=== PATIENT | male | born 1970 | race Caucasian/White ===

== ENCOUNTER 2017-10-18 22:19 | Inpatient (IN) | payer SELFPAY ==
[~2017-10-18] VITALS: Ht 160 cm; Wt 66.6 kg
[2017-10-19 02:55] VITALS: BP 186/83; PULSE 74; RESP 18; TEMP 98.2; O2SAT 97
[2017-10-19] MEDS ORDERED: ALUMINUM/MAGNESIUM/SIMETH 30 ML CUP PO PRN (03:30)
[2017-10-19] MEDS ORDERED: hydrOXYzine HCL 50 MG TAB PO PRN (03:30)
[2017-10-19] MEDS ORDERED: diphenhydrAMINE HCL 50 MG/ML VIAL IM PRN (03:30)
[2017-10-19] MEDS ORDERED: ACETAMINOPHEN 325 MG TAB PO PRN (03:30)
[2017-10-19] MEDS ORDERED: MAGNESIUM HYDROXIDE SUSP 30 ML CUP PO PRN (03:30)
[2017-10-19] MEDS ORDERED: diphenhydrAMINE HCL 50 MG CAP - HS PRN PO (03:30)
[2017-10-19] MEDS ORDERED: diphenhydrAMINE HCL 50 MG CAP PO PRN (03:30)
[2017-10-19] MEDS ORDERED: diphenhydrAMINE HCL 50 MG/ML VIAL - HS PRN IM (03:30)
[2017-10-19] MEDS ORDERED: cloNIDine HCL 0.1 MG TAB PO PRN (07:30)
[2017-10-19] MEDS ORDERED: NICOTINE 21 MG/24 HR PATCH T-DERMAL PRN (09:00)
[2017-10-19] MEDS ORDERED: NICOTINE 21 MG/24 HR PATCH T-DERMAL SCH (09:00)
--- NOTE | 2017-10-19 09:43 | HHI.HP ---
Provisional Diagnosis Admission Date Oct 19, 2017 at 02:35 [place] [facility]. 1. Other psychotic disorder Rule-out schizophrenia Rule-out symptom exaggeration for penitentiary [place] II. Deferred Certification of Person's Competence To Provide Express and Informed Consent I have personally examined Jamie Washington , a person being served at [facility] on, Oct 19, 2017 09:43. Express and informed consent means consent voluntarily given in writing, by a competent person, after sufficient explanation and disclosure of the subject matter involved to enable the person to make a knowing and willful decision without any element of force, fraud, deceit, duress, or other form of constraint or coercion. This person is 18 years of age or older, is not now known to be incompetent to consent to treatment with a guardian advocate, and does not have a health care surrogate or proxy currently making medical treatment decisions. I have found this person to be one of the following: [x] Competent to provide express and informed consent, as defined above, for voluntary admission to this facility and is competent to provide express and informed consent for treatment. He/she has the consistent capacity to make well reasoned, willful, and knowing decisions concerning his or her medical or mental health treatment. The person fully and consistently understands the purpose of the admission for examination/placement and is fully capable of personally exercising all rights assured [place] Incompetent to provide express and informed consent to voluntary admission, and this is incompetent to provide express and informed consent to treatment. The person must be transferred to involuntary status and a petition for a guardian advocate filed with the Circuit Court. [] Refusing to provide express and informed consent to voluntary admission but is competent to provide express and informed consent for treatment. The person must be discharged or transferred to involuntary status. Form shall be completed within 24 hours of a person's arrival at the receiving facility and filed in the clinical record of each person: 1. Admitted on a voluntary basis 2. Permitted to provide express and informed consent to his/her own treatment 3. Allowed to transfer from involuntary to voluntary status 4. Prior to permitting a person to consent to his or her own treatment after having been previously found incompetent to consent to treatment. History of Present Illness Capacity: Has Capacity Psych Chief Complaint: Hallucinations HPI Mr. Washington is a 47-year-old male with a reported history of bipolar disorder who presents in transfer from [facility] under a Schilling act. Documentation from outside hospital reviewed. Past history there is reported as schizophrenia, and the patient reported hallucinations. ED provider note also suggests that the patient was recently admitted in the area for the same issue after moving here a [place] ago [place] of state. Of note, the patient was found to be hyperglycemic at outside hospital, although he has no reported history of diabetes. Reviewing our electronic medical record, I note this is patient's first visit to [facility]. Patient seen and examined with nurse and counselor Radha. Chart reviewed. Case discussed with nursing staff. No behavioral issues noted. On my examination today, the patient reports that he came to [facility] from [place] on Monday of this week to start his life over. In retrospect, he says, he should have stayed in [place] for a time to save up money before moving here. He found himself in [facility] with no housing and no job. He notes "if I could find a homeless penitentiary and find me a job" he would be all right. He says "I called 911, I should have called 211 or 311 [referring to help lines for high school social studies teacher]." The patient does report chronic history of auditory hallucinations of "an argument inside my head." He also reports that these voices are occasionally deprecatory with "insults and cutdowns." He does not describe any command auditory hallucinations to hurt self or others. He denies any suicidal or homicidal ideation, intent or plan. Mood is "fairly good " although he does report that he feels disappointed with his living situation currently. He notes "I am in a good mood 24 hours a day though." I can elicit no depressive or hypomanic/manic symptoms. He does report some occasional mild feelings of paranoia, such as questioning the contents of fountain beverage that he has bought from a convenience store. He does note that he ends up drinking the beverage anyway though. I can elicit no other hallucinatory or delusional material. The remainder of the psychiatric ROS is negative. The patient has no acute physical complaints. Past psychiatric history: The patient thinks he may have been previously diagnosed with bipolar disorder. He is not currently under the care of a psychiatrist. He notes that he has been on psychotropic medications in the past but did not like how they made him feel and is not interested in psychiatric medications now. He reports that he was most recently psychiatrically admitted 2 years ago in [place] for paranoia. He denies a history of suicide attempts. He denies a history of violent behavior. Family history: The patient denies any family history of serious mental illness or suicide. Chemical dependency history: The patient denies any abuse of drugs or alcohol. Social history: The patient is from [place]. He came here on Monday. He is single. He has a son with whom he has no contact. He has 9th grade education. He has no income. No history. No legal history. Denies access to guns or firearms. He describes himself as spiritual. He denies a history of physical, verbal or sexual abuse or other trauma. Review of Systems Except as stated in HPI: all other systems reviewed are Neg Past Family Social History Coded Allergies: No Known Allergies (Unverified , 10/19/17) Past Medical History Patient denies any past medical history. He was not aware that he was experiencing hyperglycemia. Current Medications Medications (Trade) Dose Ordered Sig/Monet Route Start Time Stop Time Status Last Admin (Atarax) 50 mg Q6H PRN PO 10/19/17 03:30 Future Hold (Benadryl) 50 mg Q6H PRN PO 10/19/17 03:30 Future Hold (Benadryl Inj) 50 mg Q6H PRN IM 10/19/17 03:30 Future Hold (Benadryl) 50 mg HS PRN PO 10/19/17 03:30 (Benadryl Inj) 50 mg HS PRN IM 10/19/17 03:30 Future Hold (Tylenol) 650 mg Q4H PRN PO 10/19/17 03:30 (Milk Of Magnesia Liq) 30 ml DAILY PRN PO 10/19/17 03:30 (Mag-Al Plus Susp Liq) 30 ml Q6H PRN PO 10/19/17 03:30 Miscellaneous Information 1 HS T-DERMAL 10/19/17 21:00 (Habitrol 21 Mg Patch.24 Hr) 1 patch DAILY PRN T-DERMAL 10/19/17 09:00 (Catapres) 0.1 mg Q8H PRN PO 10/19/17 07:30 Patient takes no medications on an outpatient basis. Patient's Strengths (min. 2) Attending to basic needs. Verbally fluent. Physical Exam Physical examination completed by ED provider at outside hospital. On my examination today, the patient appears to be in no acute physical distress. No motor abnormalities noted. Labs and vitals reviewed: Vital Signs Vital Signs Date Time Temp Pulse Resp B/P (MAP) Pulse Ox O2 Delivery O2 Flow Rate FiO2 10/19/17 02:55 98.2 74 18 186/83 (117) 97 Lab Results Laboratories from outside hospital reviewed: CBC is unremarkable. BMP reveals hyperglycemia at 289. Tylenol and salicylate level are undetectable. Alcohol level undetectable. Urine toxicology negative. Mental Status Examination Appearance: Appropriate Consciousness: Alert Orientation: x4 Motor Activity: Normal gait Speech: Unremarkable Language: Adequate Fund of Knowledge: Adequate Attention and Concentration: Adequate Memory: Unremarkable Mood: Appropriate Affect: Appropriate Thought Process & Associations: Intact, Logical, Linear Thought Content: Appropriate Hallucination Type: Auditory (As above) Delusion Type: Paranoid (Mild) Suicidal Ideation: No Suicidal Plan: No Suicidal Intention: No Homicidal Ideation: No Homicidal Plan: No Homicidal Intention: No Mental Status Exam Remarks Insight and judgment are fair Assessment & Plan Problem List: (1) Other psychotic disorder not due to a substance or known physiological condition ICD Codes: F28 - Other psychotic disorder not due to a substance or known physiological condition Assessment & Plan 47-year-old male with psychiatric history as detailed above who presents in transfer from outside hospital under a Schilling act. Presently, the patient reports chronic auditory hallucinations, occasionally deprecatory. He also reports some very mild paranoia. He denies any suicidal or homicidal ideation. It is possible the patient has a schizophrenia. It is also possible that the patient is exaggerating psychiatric symptoms for penitentiary. I do not suspect a mood disorder based on my exam today. There is no evidence of delirium that might be causing his reported psychotic symptoms. I did discuss with patient at length his pharmacologic options for management of psychotic symptoms, including but not limited to typical and atypical antipsychotics as well as a discussion of long-acting injectables, but the patient says that he is not interested in psychiatric medications at this time. Given that the patient is experiencing elevated blood pressure and blood sugar, I will retain the patient on the unit overnight to allow the hospitalist to evaluate these issues and make recommendations and to allow us to observe the patient and try to obtain collateral. Admitted inpatient. Voluntary status. Patient is declining any psychotropic medications, and I have ordered none for him. Consult to the hospitalist for medical management. Clonidine for hypertension. Diabetic diet and Accu-Cheks with sliding scale insulin for hyperglycemia. Check a CMP and hemoglobin A1c. Vitals every shift. Counselor to see and obtain collateral information. Disposition planning. Estimated length of stay: 2-3 days. Discharge Planning Monitor overnight, possible discharge tomorrow. Request HC Surrog/Guard Advoc?: No Jovon Proctor MD Oct 19, 2017 09:43
[2017-10-19] MEDS ORDERED: GLUCAGON 1 MG/ML VIAL OTHER PRN (09:45)
[2017-10-19] MEDS ORDERED: DEXTROSE 50% IN WATER 50 ML VIAL(D50) IV PUSH PRN (09:45)
[2017-10-19] MEDS: INSULIN ASPART SUPPLEMENTAL SCALE SQ SCH ×2 (12:00→17:00)
[2017-10-19 12:20] LABS: ALBUMIN 3.4 GM/DL (3.4-5.0); AST (GOT) 20 U/L (15-37); BICARBONATE 32.9 MEQ/L (21.0-32.0); BLOOD UREA NITROGEN 20 MG/DL (7-18); CALCIUM 9.3 MG/DL (8.5-10.1); CHLORIDE 102 MEQ/L (98-107); CREATININE 0.78 MG/DL (0.60-1.30); GLOMERULAR FILTRATION RATE 107 ML/MIN (>89); GLUCOSE,RANDOM 224 MG/DL (74-106); SODIUM (NA) 140 MEQ/L (136-145)
[2017-10-19 12:31] LABS: ALKALINE PHOSPHATASE 90 U/L (45-117); ALT (GPT) 25 U/L (12-78); TOTAL BILIRUBIN ADULT 0.5 MG/DL (0.2-1.0); TOTAL PROTEIN 7.2 GM/DL (6.4-8.2)
[2017-10-19 16:30] VITALS: BP 111/69; PULSE 73; RESP 18; TEMP 97.9; O2SAT 98
--- NOTE | 2017-10-19 18:25 | PD.CONS ---
HPI Service [facility] Hospitalists Consult Requested By Dr. Proctor Reason for Consult Medical management Primary Care Physician No Primary Care Physician Diagnoses: (1) Diabetes (2) Other psychotic disorder not due to a substance or known physiological condition History of Present Illness 47-year-old male with a reported history of bipolar disorder admitted to [facility] from [facility] under a Schilling act. Patient's blood work revealed markedly elevated blood glucose in the 200's. Hospitalist service consulted for medical management. On my evaluation patient reports that he was diagnosed with Diabetes about 3 years ago. He states that he stopped taking the pills and has been "fine without any problems" He does not know which medications he was taking. He has been refusing insulin therapy here. He admits to polydipsia and polyuria. Review of Systems Endocrine: COMPLAINS OF: Polydipsia, Polyuria Except as stated in HPI: all other systems reviewed are Neg Past Family Social History Allergies: Coded Allergies: No Known Allergies (Unverified , 10/19/17) Past Medical History Diabetes Past Surgical History Denies Family History Denies any family history of diabetes Social History Denies alcohol or drugs. Arrived in [place] recently from [place]. Homeless. Physical Exam Vital Signs Vital Signs Date Time Temp Pulse Resp B/P (MAP) Pulse Ox O2 Delivery O2 Flow Rate FiO2 10/19/17 16:30 97.9 73 18 111/69 (83) 98 10/19/17 02:55 98.2 74 18 186/83 (117) 97 Physical Exam GENERAL: This is a well-nourished, well-developed patient, in no apparent distress. SKIN: No rashes, ecchymoses or lesions. Cool and dry. HEAD: Atraumatic. Normocephalic. No temporal or scalp tenderness. EYES: Pupils equal round and reactive. Extraocular motions intact. No scleral icterus. No injection or drainage. ENT: Nose without bleeding, purulent drainage or septal hematoma. Throat without erythema, tonsillar hypertrophy or exudate. Uvula midline. Airway patent. NECK: Trachea midline. No JVD or lymphadenopathy. Supple, nontender, no meningeal signs. CARDIOVASCULAR: Regular rate and rhythm without murmurs, gallops, or rubs. RESPIRATORY: Clear to auscultation. Breath sounds equal bilaterally. No wheezes , rales, or rhonchi. GASTROINTESTINAL: Abdomen soft, non-tender, nondistended. No hepato-splenomegaly , or palpable masses. No guarding. MUSCULOSKELETAL: Extremities without clubbing, cyanosis, or edema. No joint tenderness, effusion, or edema noted. No calf tenderness. Negative Homans sign bilaterally. NEUROLOGICAL: Awake and alert. Cranial nerves II through XII intact. Motor and sensory grossly within normal limits. Five out of 5 muscle strength in all muscle groups. Normal speech. Laboratory Laboratory Tests Test 10/19/17 10:33 Blood Urea Nitrogen 20 Creatinine 0.78 Random Glucose 224 Total Protein 7.2 Albumin 3.4 Calcium Level 9.3 Alkaline Phosphatase 90 Aspartate Amino Transf (AST/SGOT) 20 Alanine Aminotransferase (ALT/SGPT) 25 Total Bilirubin 0.5 Sodium Level 140 Potassium Level 3.9 Chloride Level 102 Carbon Dioxide Level 32.9 Anion Gap 5 Estimat Glomerular Filtration Rate 107 Thyroid Stimulating Hormone 3rd Gen 0.865 Result Diagram: 10/19/17 1033 Assessment and Plan Assessment and Plan Diabetes: Hemoglobin A1C is 10. Patient was diagnosed with diabetes 3 years ago. He would benefit from Insulin but he categorically refused insulin but after extensive discussions with him regarding benefit and side effects of Metformin, he agreed to take it. Start Metformin. Advised on diabetic diet. F/U with PCP within 1 week. Extensive counseling provided. Psychiatric disorder: Management per psychiatry. Hospitalist clear for DC. He needs follow up with PCP. Discussed Condition With Glynn Villasenor MD Oct 19, 2017 18:25
[2017-10-19] MEDS ORDERED: METF500T PO (18:27)
[2017-10-19] MEDS ORDERED: metFORMIN HCL 500 MG TAB PO SCH (18:30)
[2017-10-19 18:49] LABS: HEMOGLOBIN A1C 10.7 % (4.3-6.0)
[2017-10-19] MEDS ORDERED: REMOVE OLD NICOTINE PATCH T-DERMAL SCH (21:00)
[2017-10-20 06:09] VITALS: BP 129/69; PULSE 60; RESP 18; TEMP 98.1; O2SAT 95
--- NOTE | 2017-10-20 07:44 | HHI.DS ---
Psychiatry Discharge Summary Inpatient Psychiatric care?: Yes Advance Directive: Yes Mental Health AdvanceDirective: No Health Care Proxy: No Admission Admission Date Oct 19, 2017 at 02:35 Admission Diagnosis: (1) Other psychotic disorder not due to a substance or known physiological condition ICD Code: F28 - Other psychotic disorder not due to a substance or known physiological condition Brief History Mr. Washington is a 47-year-old male with a reported history of bipolar disorder who presents in transfer from [facility] under a Schilling act. Documentation from outside hospital reviewed. Past history there is reported as schizophrenia, and the patient reported hallucinations. ED provider note also suggests that the patient was recently admitted in the area for the same issue after moving here a [place] ago from [place] of state. Of note, the patient was found to be hyperglycemic at outside hospital, although he has no reported history of diabetes. Reviewing our electronic medical record, I note this is patient's first visit to [facility]. Patient seen and examined with nurse and counselor Radha. Chart reviewed. Case discussed with nursing staff. No behavioral issues noted. On my examination today, the patient reports that he came to [facility] from [place] on Monday of this week to start his life over. In retrospect, he says, he should have stayed in [place] for a time to save up money before moving here. He found himself in [facility] with no housing and no job. He notes "if I could find a homeless fdc and find me a job" he would be all right. He says "I called 911, I should have called 211 or 311 [referring to help lines for community mental health social worker]." The patient does report chronic history of auditory hallucinations of "an argument inside my head." He also reports that these voices are occasionally deprecatory with "insults and cutdowns." He does not describe any command auditory hallucinations to hurt self or others. He denies any suicidal or homicidal ideation, intent or plan. Mood is "fairly good " although he does report that he feels disappointed with his living situation currently. He notes "I am in a good mood 24 hours a day though." I can elicit no depressive or hypomanic/manic symptoms. He does report some occasional mild feelings of paranoia, such as questioning the contents of fountain beverage that he has bought from a convenience store. He does note that he ends up drinking the beverage anyway though. I can elicit no other hallucinatory or delusional material. The remainder of the psychiatric ROS is negative. The patient has no acute physical complaints. Past psychiatric history: The patient thinks he may have been previously diagnosed with bipolar disorder. He is not currently under the care of a psychiatrist. He notes that he has been on psychotropic medications in the past but did not like how they made him feel and is not interested in psychiatric medications now. He reports that he was most recently psychiatrically admitted 2 years ago in [place] for paranoia. He denies a history of suicide attempts. He denies a history of violent behavior. Family history: The patient denies any family history of serious mental illness or suicide. Chemical dependency history: The patient denies any abuse of drugs or alcohol. Social history: The patient is from [place]. He came here on Monday. He is single. He has a son with whom he has no contact. He has 9th grade education. He has no income. No history. No legal history. Denies access to guns or firearms. He describes himself as spiritual. He denies a history of physical, verbal or sexual abuse or other trauma. Tobacco Use In Past 30 Days: Cigars and/or Pipe Daily Alcohol Use: Monthly or Less Hospital Course Patient was admitted to a locked, inpatient psychiatric unit. A general medical consultation was obtained. Appropriate precautions were in place throughout patient's hospital stay. Patient was seen and examined on the unit by psychiatry and also visited by counselor. Patient declined any psychotropic medications. He refused Accu-Cheks and sliding scale but was willing to accept Metformin for his diabetes. There was no evidence of any suicidality or homicidality on the inpatient unit. There was no evidence of self-care deficit. The patient remained in behavioral control. On the day of discharge: Patient seen and examined with nurse. Chart reviewed. Case discussed with nursing staff who reports that the patient was no behavioral problem overnight. Case discussed in treatment team. On my examination today, the patient is requesting discharge from the inpatient psychiatric unit today. He denies any suicidal or homicidal ideation, intent or plan on direct questioning and contracts for safety. Mood is stable and I can elicit no depressive or hypomanic/manic symptoms. He reports ongoing auditory hallucinations of voices conversing inside of his head and notes "that is how it has been all my life." He denies any command auditory hallucinations to hurt himself or others. He denies any other hallucinatory material. I can elicit no delusional material. Although the patient presently is declining psychotropic medications, I have asked him to keep an open mind regarding psychotropic medications and follow-up with outpatient mental health, and the patient has agreed to do so. He has no physical complaints. Suicide and violence risk assessment on day of discharge both suggest lower imminent risk, and the patient's level of function is adequate for outpatient care. The patient does not meet criteria for involuntary psychiatric hospitalization. He is requesting discharge from the inpatient psychiatric unit today, and I have no basis to retain him over his objection. Patient will be discharged today with outpatient psychiatric follow- up as arranged by counselor. Patient is also to follow up with primary care. I have counseled patient to abstain from any substances of abuse. I have counseled the patient regarding warning signs for need to return psychiatric emergency room as part of a general safety plan. Results Blood Pressure 129 / 69 Vital Signs Date Time Temp Pulse Resp B/P (MAP) Pulse Ox O2 Delivery O2 Flow Rate FiO2 10/20/17 06:09 98.1 60 18 129/69 (89) 95 Laboratory Tests Test 10/19/17 10:33 Blood Urea Nitrogen 20 MG/DL (7-18) Random Glucose 224 MG/DL (74-106) Carbon Dioxide Level 32.9 MEQ/L (21.0-32.0) Hemoglobin A1c 10.7 % (4.3-6.0) Laboratory Results Test 10/19/17 10:33 Hemoglobin A1c 10.7 % (4.3-6.0) Summary of Procedures None done Imaging None done Pending results at discharge: No Medications # of Antipsychotic meds at D/C: 0 Approp Antipsych med options 1 - Minimum of three failed multiple trials of monotherapy. 2 - Documented plan to taper to monotherapy due to previous use of multiple meds OR cross-taper in progress at D/C. 3 - Documentation of augmentation of Clozapine. 4 - Justification other than those listed in allowable values 1-3, document here : Discharge Discharge Date: Oct 20, 2017 Discharge Diagnosis: (1) Other psychotic disorder not due to a substance or known physiological condition Diagnosis: Principal (Not presently in acute exacerbation) ICD Code: F28 - Other psychotic disorder not due to a substance or known physiological condition Pt Condition on Discharge: Fair Discharge Disposition: Discharge Home Discharge Instructions Diet Instructions: As Tolerated, No Restrictions Activities you can perform: Weight Bearing as Steve Scheduled Appointment: [facility] New Medications: Metformin (Metformin) 500 Mg Tab 500 MG PO BIDPC for Blood Sugar Management, #60 TAB 0 Refills Discharge Time <= 30 minutes Mental Status Examination Appearance: Appropriate Consciousness: Alert Orientation: x4 Motor Activity: Normal gait, Other (No motor abnormalities noted) Speech: Unremarkable Language: Adequate Fund of Knowledge: Adequate Attention and Concentration: Adequate Memory: Unremarkable Mood: Appropriate Affect: Appropriate Thought Process & Associations: Intact, Logical, Goal directed, Linear Thought Content: Appropriate Hallucination Type: Auditory (Conversing, noncommand) Delusion Type: None Suicidal Ideation: No Suicidal Plan: No Suicidal Intention: No Homicidal Ideation: No Homicidal Plan: No Homicidal Intention: No Mental Status Exam Remarks Insight and judgment are fair at best Discharge/Advance Care Plan Health Problems: (1) Other psychotic disorder not due to a substance or known physiological condition Goals to promote your health * To prevent worsening of your condition and complications * To maintain your health at the optimal level Directions to meet your goals Take your medications as prescribed Follow your dietary instruction Follow activity as directed Keep your appointments as scheduled Take your immunizations and boosters as scheduled If your symptoms worsen call your PCP, if no PCP go to Urgent Care Center or Emergency Room For 23/01 questions related to your inpatient stay or results of tests pending at discharge, please contact Dr. Jovon Proctor at Smoking is Dangerous to Your Health. Avoid second hand smoking Jovon Proctor MD Oct 20, 2017 07:44
== END 2017-10-20 11:40 | disposition home or self-care (01) | DRG 885 ==
LOC: H270 10-19 02:35
PROVIDERS: ADMIT Psychiatry & Neurology Psychiatry; ATTEND Psychiatry & Neurology Psychiatry
DX: F28 Other psychotic disorder not due to a substance or known physiological condition (principal); E11.65 Type 2 diabetes mellitus with hyperglycemia; I10 Essential (primary) hypertension; Z59.0 Homelessness
CPT/HCPCS: 80053; 82948; 83036; 84443